=== PATIENT | male | born 1985 | race Caucasian/White ===

== ENCOUNTER 2017-01-30 13:56 | Emergency (ER) | payer OTHER ==
--- NOTE | ~2017-01-30 | CR63 ---
[facility] A Service of [facility] RADIOLOGY TEXT RESULTS PATIENT: CLARA MYERS LOCATION: [facility] : 83 UNIT #: [id number] AGE: [address]: Jonathan Perez MD SEX: M ORDER DR: [id number] [facility] [address] [place], [place] [address] [id number] E MR#: [id number] Acc #: [id number] NAME: CLARA MYERS : 1985 SEX: M STUDY DATE/TIME: 01/30/2017 16:34 UNIT: GINA ROOM: STUDY DESCRIPTION: CR Chest 2 View Attending Physician: Matthew Perez M.D. Ordering Physician: Bhavesh Wright D.O. [facility] REPORT This report is preliminary unless electronic signature is present EXAM Two views chest. HISTORY Shortness of air with activity, weakness, overdose, 01/30/2017. COMPARISON PA chest 08/23/2016. FINDINGS Two views of the chest demonstrate large lucent lesion in the left upper lung which reportedly represents a large bulla and does not appear changed from the 08/23/2016 study. There is some compressive atelectasis left mid lung zone. Prominent basilar interstitial markings, but no dense consolidation or effusions. Heart and mediastinum are unremarkable. No effusions. IMPRESSION 1. Large left upper lung bulla with some compressive atelectasis. This is not significantly changed from prior chest radiograph dating back to 08/2016. 2. Mild basilar interstitial prominence, but clearly no acute findings. Dictated by... Eric Elizondo M.D. THIS IS AN ELECTRONICALLY VERIFIED REPORT Eric Elizondo M.D. at 01/31/2017 10:05 AM JUNIOR/latanya TD: 01/31/2017 08:22 JOB #: [id number] [facility] A Service of [facility] RADIOLOGY TEXT RESULTS PATIENT: CLARA MYERS LOCATION: [facility] #: [id number] : 83 UNIT #: [id number] AGE: [address]: Jonathan Perez MD SEX: M ORDER DR: MEDICAL IMAGING REPORT Page 1 of 1 COPY
--- NOTE | ~2017-01-30 | CR72 ---
[facility] A Service of [facility] RADIOLOGY TEXT RESULTS PATIENT: CLARA MYERS LOCATION: [facility] : 83 UNIT #: [id number] AGE: [address]: Jonathan Perez MD SEX: M ORDER DR: [id number] [facility] [address] [place], [place] [address] [id number] E MR#: [id number] Acc #: [id number] NAME: CLARA MYERS : 1985 SEX: M STUDY DATE/TIME: 01/30/2017 14:15 UNIT: GINA ROOM: STUDY DESCRIPTION: CR Chest Single View Portable Attending Physician: Jonathan Perez Ordering Physician: Bhavesh Wright D.O. Primary Care Physician: [facility] IMAGING REPORT This report is preliminary unless electronic signature is present EXAM Portable AP view of the chest COMPARISON August 23, 2016 and June 05, 2008. INDICATIONS 31-year-old male with dyspnea today. Heroin overdose. FINDINGS There is stable appearance of a large bulla in the left upper chest. There is slight increased band-like opacity in the lingula and/or left lower lobe most in keeping with scarring and/or atelectasis. This may appear slightly more prominent due to differences in comparison and the current AP technique. Similarly pulmonary interstitium appears slightly more prominent in the right lung base. Cardiomediastinal silhouette is within normal limits. No evidence of pneumothorax or pleural effusion. IMPRESSION 1. Interstitial prominence appears increased in both lung bases perhaps due to differences in the comparison PA technique and current AP technique. Mild interstitial edema or bronchitis could possibly give this picture. There is no evidence of consolidative pneumonia. No pleural effusion. 2. Stable large bulla in the superior left chest. No convincing evidence of pneumothorax. Dictated by... Jose Mitchell M.D. THIS IS AN ELECTRONICALLY VERIFIED REPORT Jose Mitchell M.D. at 02/01/2017 4:28 PM [facility] A Service of [facility] RADIOLOGY TEXT RESULTS PATIENT: CLARA MYERS LOCATION: [facility] : 83 UNIT #: [id number] AGE: [address]: Jonathan Perez MD SEX: M ORDER DR: Jeanna TD: 01/31/2017 07:20 JOB #: [id number] MEDICAL IMAGING REPORT Page 1 of 1 COPY
[~2017-01-30 13:56] MED LIST: AMOXICILLIN PO; KLOR-CON PO; PHENERGAN25 MG PO; VICODIN 5/500 T1 TAB PO; ZANTAC150 MG PO
[2017-01-30 16:25] LABS: BASOPHIL% 0.3 % (0-2.5); EOSINOPHIL# 0.2 X10e3 (0-0.7); EOSINOPHIL% 1.3 % (0.0-7.0); HEMATOCRIT 40.6 % (38.0-50.0); HEMOGLOBIN 13.6 gm/dL (13.0-16.0); LYMPHOCYTE# 2.5 X10e3 (1.0-3.5); LYMPHOCYTE% 18.6 % (17.0-45.0); MEAN CORPUSCULAR HEMOGLOBIN 27.9 PG (28-34); MEAN CORPUSCULAR HGB CONC 33.6 g/dL (30-36); MEAN PLATELET VOLUME 7.1 FL (6.5-11.5); MONOCYTE# 0.9 X10e3 (0-1.0); MONOCYTE% 6.7 % (3.0-12.0); NEUTROPHIL# 9.8 X10e3 (1.5-7.1); NEUTROPHIL% 73.1 % (40-75); PLATELET COUNT 285 X10e3 (140-420); RED BLOOD COUNT 4.89 X10e (3.90-5.60); RED CELL DISTRIBUTION WIDTH 15.1 % (11.0-15.5); WHITE BLOOD COUNT 13.3 X10e3 (4.0-10.5)
[2017-01-30 16:26] LABS: DIFF IND NO
[2017-01-30 16:49] LABS: CALCIUM SERUM 9.1 mg/dL (8.4-10.2); GLOM FILT RATE Estimated 99.2 mL/min (>60); POTASSIUM 4.1 mmol/L (3.5-5.1)
[2017-01-30 18:39] LABS: POC - CKMB 1.8 ng/mL (0.0-7.9); POC - TROPONIN <0.05 ng/mL (<=0.05)
== END 2017-01-30 20:21 | disposition home or self-care (01) ==
LOC: CED 13:56
PROVIDERS: Emergency Medicine
DX: T40.1X1A Poisoning by heroin, accidental (unintentional), initial encounter (principal); F17.200 Nicotine dependence, unspecified, uncomplicated; Y92.9 Unspecified place or not applicable
CPT/HCPCS: 36415; 71010; 71020; 80048; 82553; 83880; 84484; 85025; 99283